=== PATIENT | female | born 1960 | race Caucasian/White ===

== ENCOUNTER 2017-07-17 19:40 | Emergency (ER) | payer BC ==
[~2017-07-17] VITALS: Ht 160 cm; Wt 62.6 kg
[~2017-07-17 19:40] MED LIST: CLON.5 PO; CYCL-36 PO; HORMONE REPLACEMENT; LEXA10TA PO; OMEP20TA39 PO
[2017-07-17 19:50] VITALS: BP 154/71; PULSE 78; RESP 16; TEMP 98.7; O2SAT 99
[2017-07-17] MEDS ORDERED: CYCL1TAB29 PO (20:06)
[2017-07-17] MEDS ORDERED: BUTA1CAP PO (20:06)
[2017-07-17] MEDS ORDERED: PROT40TA PO (20:06)
[2017-07-17] MEDS ORDERED: LEXA20TA PO (20:06)
--- NOTE | 2017-07-17 20:34 | PD ---
HPI Chief Complaint: Eye Problems/Injury Time Seen by Provider: 20:14 Travel History International Travel<30 days: No Contact w/Intl Traveler<30days: No Traveled to known affect area: No History of Present Illness HPI 57-year-old female presents emergency department for evaluation of "floater" in right eye for the last 24-30 hours. Patient reports she has a small floater located at approximately 4 O'CLOCK location in the right eye which "comes and goes". She denies trauma to the eye. Patient has an established academic advisor but he could not fit her in today. She reports she has normal vision in that eye despite the floater. She denies eye pain. No aggravating or alleviating factors. PFSH Past Medical History Anxiety: Yes Depression: Yes Heart Rhythm Problems: No Cancer: No Cardiovascular Problems: Yes High Cholesterol: Yes (cannot take statins due to side effects) Chemotherapy: No Chest Pain: Yes Congestive Heart Failure: No Coronary Artery Disease: Yes (MICROVASCULAR DISEASE) Endocrine: No Gastrointestinal Disorders: Yes (H/O IBS) GERD: Yes Genitourinary: No Headaches: Yes Hypertension: Yes Immune Disorder: No Musculoskeletal: Yes (TMJ) Neurologic: No Reproductive: No Respiratory: No Migraines: Yes Radiation Therapy: No Thyroid Disease: Yes Tetanus Vaccination: > 5 Years Influenza Vaccination: No ?: Not Past Surgical History Abdominal Surgery: Yes (appy) Appendectomy: Yes Cardiac Surgery: No Ear Surgery: No Endocrine Surgery: No Eye Surgery: No Genitourinary Surgery: No Gynecologic Surgery: Yes (hysterectomy) Hysterectomy: Yes Oral Surgery: No Thoracic Surgery: No Other Surgery: Yes Social History Alcohol Use: Yes (RARE) Tobacco Use: No Substance Use: No Allergies-Medications (Allergen,Severity, Reaction): Coded Allergies: No Known Allergies (Verified , 07/17/17) Reported Meds & Prescriptions Reported Meds & Active Scripts Active Reported Fioricet (Lxgenspvfr-Wbzpvibifnbec-Jtsywhqb) 50-300-40 Mg Cap 1 Cap PO Q4H PRN Protonix (Pantoprazole Sodium) 40 Mg Tab 40 Mg PO DAILY Flexeril (Cyclobenzaprine HCl) 10 Mg Tab 10 Mg PO TID Lexapro (Escitalopram Oxalate) 20 Mg Tab 20 Mg PO DAILY [Hormone Replacement] Review of Systems Except as stated in HPI: all other systems reviewed are Neg Physical Exam Narrative GENERAL: Well-nourished, well-developed patient. SKIN: Focused skin assessment warm/dry. HEAD: Normocephalic. EYES: No scleral icterus. No injection or drainage. Pupils are equal round and reactive to light. EOMs intact. No visual field loss. Cornea is clear. Visual acuity left eye L:20/20, R:20/20, B:20/20. NECK: Supple, trachea midline. No JVD or lymphadenopathy. CARDIOVASCULAR: Regular rate and rhythm without murmurs, gallops, or rubs. RESPIRATORY: Breath sounds equal bilaterally. No accessory muscle use. GASTROINTESTINAL: Abdomen soft, non-tender, nondistended. Data Data Last Documented VS Vital Signs Date Time Temp Pulse Resp B/P (MAP) Pulse Ox O2 Delivery O2 Flow Rate FiO2 07/17/17 19:50 98.7 78 16 154/71 (98) 99 MDM Medical Decision Making Medical Screen Exam Complete: Yes Emergency Medical Condition: Yes Differential Diagnosis Floaters, Retinal detachment, vitreous hemorrhage, vitreous inflammation Narrative Course 57-year-old female presents emergency department for evaluation of "floater" in right eye for the last 24-30 hours. Patient reports she has a small floater located at approximately 4 O'CLOCK location in the right eye which "comes and goes". She denies trauma to the eye. Patient has an established academic advisor but he could not fit her in today. She has 20/20 vision in the affected eye. No visual field loss. EOMs intact. Patient's case was discussed with my attending physician Dr. Montiel. The hospital does not have ophthalmology coverage today. Given the patient has normal visual acuity and no visual field loss. She was recommended to follow up with ophthalmology at the very latest on Thursday07/20/17. It was recommended that she have a dilated eye exam tomorrow at [facility] where she has an appointment. Return precautions discussed with patient and family. They verbalize understanding and agree to plan. Diagnosis Primary Impression: Visual floaters Qualified Codes: H43.391 - Other vitreous opacities, right eye Referrals: Senior Climate Advisor Additional Instructions: It is very important that you have a dilated eye exam. I would recommend that he see an academic advisor on Thursday or sooner if possible. Return to the emergency department immediately if he developed new or worsening symptoms. Sleep with the head of the bed elevated at least 45. Avoid laughing, coughing, sneezing, vomiting anything that would increase pressure within the eye. Avoid any strenuous activity or heavy lifting. Disposition: 01 DISCHARGE HOME Condition: Stable Shahida Pelayo Jul 17, 2017 20:34
== END 2017-07-17 20:38 | disposition home or self-care (01) ==
LOC: PHEFT 19:40
DX: H43.391 Other vitreous opacities, right eye (principal); E78.00 Pure hypercholesterolemia, unspecified; I10 Essential (primary) hypertension; I25.10 Atherosclerotic heart disease of native coronary artery without angina pectoris; K21.9 Gastro-esophageal reflux disease without esophagitis
CPT/HCPCS: 99281